=== PATIENT | male | born 1960 | race African-American/Black ===

== ENCOUNTER → 2020-09-15 | Outpatient (CLI) | payer OTHER ==
[~2020-09-15] MED LIST: ACETAMINOPHEN325 M1 PO; ASPIRIN EC81 M1 PO; ATIVAN1 MG PO; CELEXA40 MG PO; EFFIENT10 MG PO; FLEXERIL PO; IBUPROFEN 200200 M1 PO; LISINOPRIL10 MG PO; LISINOPRIL5 MG PO; LOPRESSOR25 PO; LOPRESSOR50 PO; NAPROSYN500 MG PO; NOHOMEMEDICATIONS; PLAVIX 75 MG TA75 M1 PO; PROTONIX40 M1 PO; SIMVASTATIN40 MG PO; TRAZODONE 150150 M1 PO; Trazodone PO; XANAX 0.25 MG0.25 MG PO; XANAX 0.5 MG0.5 M1 PO; ZOFRAN ODT4 MG PO
== END ==
LOC: SJCVCIMAG 07:36
PROVIDERS: ATTEND Internal Medicine
DX: I25.10 Atherosclerotic heart disease of native coronary artery without angina pectoris (principal); R06.00 Dyspnea, unspecified; I10 Essential (primary) hypertension; E78.5 Hyperlipidemia, unspecified; Z95.5 Presence of coronary angioplasty implant and graft